=== PATIENT | male | born 1990 | race African-American/Black ===

== ENCOUNTER 2019-08-21 17:48 | Emergency (ER) | payer BC ==
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
[2019-08-21 18:40] VITALS: BP 132/92; TEMP 98.8; O2SAT 98
== END 2019-08-21 18:34 | disposition home or self-care (01) ==
LOC: ER 17:48 → EDSEX 17:48 → ER 18:34
DX: S40.872A Other superficial bite of left upper arm, initial encounter (principal); S40.871A Other superficial bite of right upper arm, initial encounter; Y04.1XXA Assault by human bite, initial encounter; Y93.89 Activity, other specified; Y92.89 Other specified places as the place of occurrence of the external cause
CPT/HCPCS: 99282

== ENCOUNTER 2021-01-11 07:17 | Emergency (ER) | payer SELFPAY ==
--- NOTE | 2021-01-11 07:59 | ER ---
Nurse's Notes [facility] Name: Pavithra Chaves Age: 30 yrs Sex: Male : 1990 Arrival Date: 01/11/2021 Time: 07:18 Bed 19 Private MD: Diagnosis: Pain in left toe(s) Presentation: 01/11 07:32 Chief complaint: Patient states: L foot 1st digit pain and swelling since last night. ll1 No fever. Coronavirus screen: Vaccine status: Patient reports being unvaccinated. Client denies travel out of the [place] in the last 14 days. At this time, the client does not indicate any symptoms associated with coronavirus-19. Ebola Screen: Patient denies travel to an Ebola-affected area in the 21 days before illness onset. Initial Sepsis Screen: Does the patient meet any 2 criteria? No. Patient's initial sepsis screen is negative. Does the patient have a suspected source of infection? Yes: Skin breakdown/wound. Risk Assessment: Do you want to hurt yourself or someone else? Patient reports no desire to harm self or others. Onset of symptoms was January 10, 2021. 07:32 Method Of Arrival: Ambulatory ll1 07:32 Acuity: SWEETIE 4 ll1 Triage Assessment: 07:34 General: Appears in no apparent distress. Behavior is calm, cooperative. Pain: jw6 Complains of pain in left first toe and Left first toenail Pain currently is 6 out of 10 on a pain scale. EENT: No deficits noted. Neuro: No deficits noted. Cardiovascular: No deficits noted. Respiratory: No deficits noted. GI: No deficits noted. : No deficits noted. Derm: No deficits noted. Musculoskeletal: No deficits noted. Historical: - Allergies: 07:33 No Known Allergies; ll1 - PMHx: 07:33 None; ll1 - Immunization history:: Client reports having NOT received the Covid vaccine. - Social history:: Smoking status: Patient reports the use of cigarette tobacco products, smokes one-half pack cigarettes per day. Screenin:36 Abuse screen: Denies threats or abuse. Denies injuries from another. Nutritional jw6 screening: No deficits noted. Tuberculosis screening: No symptoms or risk factors identified. Fall Risk None identified. Assessment: 07:36 General: Appears in no apparent distress. Behavior is calm, cooperative. Pain: jw6 Complains of pain in left first toe and Left first toenail. Neuro: No deficits noted. Cardiovascular: No deficits noted. Respiratory: No deficits noted. GI: No deficits noted. : No deficits noted. EENT: No deficits noted. Derm: No deficits noted. Musculoskeletal: No deficits noted. Vital Signs: 07:32 BP 112 / 62; Pulse 60; Resp 17; Temp 97.0; Pulse Ox 95% on R/A; Height 5 ft. 7 in. ll1 (170.18 cm); 07:34 BP 134 / 68; Pulse 78; Resp 18; Temp 98.9; Pulse Ox 98% ; Weight 104.33 kg; Height 5 jw6 ft. 8 in. (172.72 cm); Pain 6/10; 07:34 Body Mass Index 34.97 (104.33 kg, 172.72 cm) [facility] ED Course: 07:18 Patient arrived in ED. am2 07:21 Vincent Cheatham PA is PHCP. tere 07:21 Chastity Garcia MD is Attending Physician. [facility] 07:33 Triage completed. 1 07:33 Arm band placed on Patient placed in an exam room, on a stretcher. 1 07:34 Joyce Ruby is Primary Nurse. jw6 07:36 Patient has correct armband on for positive identification. Bed in low position. Call [facility] light in reach. Side rails up X 1. 07:58 Daniele Nguyen DPM is Referral Physician. [facility] Administered Medications: 08:12 Drug: Marcaine (bupivacaine) (0.5 %) 10 ml Volume: 10 ml; Route: Infiltration; [facility] 08:12 Follow up: Response: No adverse reaction [facility] Outcome: 07:58 Discharge ordered by . [facility] 08:27 Patient left the ED. [facility] Signatures: Vincent Cheatham PA PA jmm Martinez, Maria [facility] Ariana Melgar Lynsay, RN RN 1 Joyce Ruby [facility]
--- NOTE | 2021-01-11 07:59 | EDPHYS ---
Physician Documentation [facility] Name: Pavithra Chaves Age: 30 yrs Sex: Male : 1990 Arrival Date: 01/11/2021 Time: 07:18 Bed 19 Private MD: ED Physician Chastity Garcia HPI: 01/11 07:41 This 30 yrs old Black Male presents to ER via Ambulatory with complaints of toe jmm swelling. 07:41 The patient presents with pain, that is acute. Onset: The symptoms/episode jmm began/occurred gradually, today. Modifying factors: The symptoms are alleviated by nothing, the symptoms are aggravated by nothing. Associated signs and symptoms: Pertinent negatives: fever. Denies injury. Historical: - Allergies: 07:33 No Known Allergies; ll1 - PMHx: 07:33 None; ll1 - Immunization history:: Client reports having NOT received the Covid vaccine. - Social history:: Smoking status: Patient reports the use of cigarette tobacco products, smokes one-half pack cigarettes per day. ROS: 07:41 Constitutional: Negative for fever, chills, and weight loss, Cardiovascular: Negative jmm for chest pain, palpitations, and edema, Abdomen/GI: Negative for abdominal pain, nausea, vomiting, diarrhea, and constipation. 07:41 MS/extremity: Positive for pain, swelling. 07:41 All other systems are negative. Exam: 07:41 Constitutional: This is a well developed, well nourished patient who is awake, alert, jmm and in no acute distress. Head/Face: atraumatic. Eyes: EOMI, no conjunctival erythema appreciated ENT: Moist Mucus Membranes Neck: Trachea midline, Supple Cardiovascular: Regular rate and rhythm. No edema appreciated Respiratory: Normal respirations, no respiratory distress appreciated Abdomen/GI: Non distended, soft Back: Normal ROM 07:41 Skin: mild erythema noted surrounding the nail plate, no purulent drainage appreciated. 07:41 Neuro: Orientation: is normal, Mentation: is normal, Memory: is normal. Vital Signs: 07:32 BP 112 / 62; Pulse 60; Resp 17; Temp 97.0; Pulse Ox 95% on R/A; Height 5 ft. 7 in. ll1 (170.18 cm); 07:34 BP 134 / 68; Pulse 78; Resp 18; Temp 98.9; Pulse Ox 98% ; Weight 104.33 kg; Height 5 jw6 ft. 8 in. (172.72 cm); Pain 6; 07:34 Body Mass Index 34.97 (104.33 kg, 172.72 cm) 6 MDM: 07:40 Patient medically screened. [facility] 07:56 Data reviewed: vital signs, nurses notes. Counseling: I had a detailed discussion with [facility] the patient and/or guardian regarding: the historical points, exam findings, and any diagnostic results supporting the discharge/admit diagnosis, the need for outpatient follow up, to return to the emergency department if symptoms worsen or persist or if there are any questions or concerns that arise at home. ED course: Toe block was applied using 5 mils of 0.5% bupivacaine. The base of the toe was cleaned with Betadine. Patient tolerated this procedure well. Patient will be put on a course of oral antibiotics and otherwise given strict return precautions. Patient understood and agrees plan of care.. Administered Medications: 08:12 Drug: Marcaine (bupivacaine) (0.5 %) 10 ml Volume: 10 ml; Route: Infiltration; [facility] 08:12 Follow up: Response: No adverse reaction [facility] Disposition Summary: 01/11/21 07:58 Discharge Ordered Location: Home [facility] Condition: Stable [facility] Diagnosis - Pain in left toe(s) [facility] Followup: [facility] - With: Daniele Nguyen DPM - When: 2 - 3 days - Reason: Recheck today's complaints, Continuance of care, Re-evaluation by your physician Discharge Instructions: - Discharge Summary Sheet [facility] - Ingrown Toenail [facility] Forms: - Medication Reconciliation Form [facility] - Thank You Letter [facility] - Work release form [facility] - Antibiotic Education [facility] - Prescription Opioid Use [facility] Prescriptions: - Augmentin 875-125 mg Oral Tablet - take 1 tablet by ORAL route every 12 hours for 10 days; 20 tablet; Refills: 0, [facility] Product Selection Permitted Addendum: 01/14/2021 22:57 Co-signature as Attending Physician, Chastity Garcia MD PA/[employer]'s history reviewed, m a2 patient interviewed, and examined. I agree with assessment and care plan and confirm the diagnosis (es) above. Signatures: Vincent Cheatham PA PA jmm Alzahri, Mohammad, MD MD ma2 Jana Garcia RN RN ll1 Joyce Ruby 6
[2021-01-11 08:38] VITALS: BP 134/68; TEMP 98.9; O2SAT 98
== END 2021-01-11 08:27 | disposition home or self-care (01) ==
LOC: ER 07:17
DX: M79.675 Pain in left toe(s) (principal); F17.210 Nicotine dependence, cigarettes, uncomplicated
CPT/HCPCS: 99283